=== PATIENT | male | born 1990 | race Caucasian/White ===

== ENCOUNTER 2017-05-27 12:54 | Inpatient (IN) | payer MEDICAID, OTHER ==
[~2017-05-27] VITALS: Ht 185.4 cm; Wt 100.4 kg
[2017-05-27] MEDS ORDERED: INSLAN SQ (12:58)
[2017-05-27] MEDS ORDERED: INSNOV SQ (12:58)
[2017-05-27 13:41] LABS: BASOPHILS % (AUTO) 0.8 % (0.0-2.0); EOSINOPHILS % (AUTO) 1.1 % (1.0-6.0); HEMATOCRIT 42.7 % (41-53); HEMOGLOBIN 15.2 g/dL (13.5-17.5); LYMPHOCYTES # (AUTO) 1.8 K/uL (1.0-4.8); LYMPHOCYTES % (AUTO) 31.4 % (22.0-44.0); MEAN CORPUSCULAR HGB CONC 35.5 G/dL (31.0-37.0); MEAN CORPUSCULAR VOLUME 96 fL (80-100); MONOCYTES # (AUTO) 0.7 K/uL (0.1-1.0); MONOCYTES % (AUTO) 12.3 % (2.0-9.0); NEUTROPHILS # (AUTO) 3.1 K/uL (1.8-7.7); NEUTROPHILS % (AUTO) 54.4 % (40.0-70.0); PLATELET COUNT (AUTO) 404 K/uL (150-450); RED BLOOD CELL COUNT(AUTO) 4.47 MIL/uL (4.50-5.90); RED CELL DISTRIBUTION WIDTH 13.1 % (11.5-14.5); WHITE BLOOD COUNT (AUTO) 5.6 K/uL (4.5-11.0)
[2017-05-27 13:54] LABS: ANION GAP 10 mmol/L (8-16); CALCIUM, TOTAL 8.6 mg/dL (8.8-10.5); CARBON DIOXIDE 27 mmol/L (22-29); CHLORIDE 103 mmol/L (98-107); CREATININE 0.74 mg/dL (0.60-1.30); GLOMERULAR FILTR. RATE CALC > 60 mL/min (>60); POTASSIUM 3.4 mmol/L (3.5-5.1); SODIUM SERUM 140 mmol/L (136-145); UREA NITROGEN, BLOOD 8 mg/dL (7-18)
[2017-05-27 14:00] LABS: ALANINE AMINOTRANSFERASE 62 U/L (12-78); ALBUMIN 3.9 g/dL (3.4-5.0); ASPARTATE AMINOTRANSFERASE 58 U/L (15-37); BILIRUBIN,TOTAL 0.4 mg/dL (0.1-1.0); TOTAL PROTEIN, SERUM 7.9 g/dL (6.4-8.2)
[2017-05-27] MEDS ORDERED: HALOPERIDOL 5 MG TABLET PO PRN (14:15)
[2017-05-27] MEDS ORDERED: ZOLPIDEM TARTRATE 10 MG TABLET PO PRN (14:15)
[2017-05-27] MEDS ORDERED: LORazepam 2 MG TABLET PO PRN (14:15)
[2017-05-27] MEDS ORDERED: POTASSIUM CHLORIDE 20 MEQ ER TABLET PO ONE (14:30)
[2017-05-27] MEDS ORDERED: LORazepam 2 MG/ML VIAL IM ONE (14:45)
[2017-05-27] MEDS ORDERED: DiphenhydrAMINE HCL 50 MG/ML VIAL IM ONE (14:45)
[2017-05-27] MEDS ORDERED: HALOPERIDOL LACTATE 5 MG/ML VIAL IM ONE (14:45)
[2017-05-27 15:02] LABS: GLUCOSE,POINT OF CARE 119 MG/DL (70-110)
[2017-05-28] VITALS (11 sets, daily range): BP systolic 118–140; BP diastolic 75–93
[2017-05-28 00:57] LABS: GLUCOSE,POINT OF CARE 73 MG/DL (70-110)
[2017-05-28 14:37] LABS: GLUCOSE COMMENT 1 Doctor Notified; GLUCOSE,POINT OF CARE 232 MG/DL (70-110)
[2017-05-28] MEDS ORDERED: GLUCAGON,HUMAN RECOMBINANT 1 MG VIAL IM PRN (15:15)
[2017-05-28 16:22] LABS: GLUCOSE,POINT OF CARE 273 MG/DL (70-110)
[2017-05-28] MEDS: INSULIN ASPART 100 UNITS/ML SQ PRN ×2 (17:02→21:15)
[2017-05-28] MEDS ORDERED: ACETAMINOPHEN 325 MG TABLET PO PRN (18:45)
[2017-05-28] MEDS ORDERED: IBUPROFEN 400 MG TABLET PO PRN (18:45)
[2017-05-28 20:33] LABS: GLUCOSE,POINT OF CARE 274 MG/DL (70-110)
[2017-05-28 20:33] LABS: GLUCOSE,POINT OF CARE 298 MG/DL (70-110)
[2017-05-29 06:53] VITALS: BP 131/71
[2017-05-29 06:54] VITALS: BP 131/71
[2017-05-29 08:30] VITALS: BP 118/78
[2017-05-29 08:31] VITALS: BP 118/78
[2017-05-29 08:38] LABS: GLUCOSE,POINT OF CARE 266 MG/DL (70-110)
[2017-05-29] MEDS ORDERED: INSULIN DETEMIR 100 UNITS/ML SQ SCH (09:00)
[2017-05-29 09:17] LABS: CHOL/HDL RATIO 3.1 (4.2-7.3); THYROID STIMULATING HORMONE 1.54 uIU/mL (0.36-3.74)
[2017-05-29] MEDS: INSULIN ASPART 100 UNITS/ML SQ PRN (11:09)
[2017-05-29 11:12] LABS: GLUCOSE COMMENT 1 Received Meds; GLUCOSE,POINT OF CARE 278 MG/DL (70-110)
== END 2017-05-29 16:00 | disposition home or self-care (01) | DRG 750 ==
LOC: EMS 12:56 → B3A 18:41 → B2S 05-28 09:22
PROVIDERS: ADMIT Psychiatry & Neurology Psychiatry; ATTEND Psychiatry & Neurology Psychiatry
DX: F25.9 Schizoaffective disorder, unspecified (principal); E11.9 Type 2 diabetes mellitus without complications; R45.851 Suicidal ideations; F19.10 Other psychoactive substance abuse, uncomplicated; E87.6 Hypokalemia; R74.0 Nonspecific elevation of levels of transaminase and lactic acid dehydrogenase [LDH]; Z79.899 Other long term (current) drug therapy; Z79.4 Long term (current) use of insulin; Z71.51 Drug abuse counseling and surveillance of drug abuser; Z72.89 Other problems related to lifestyle
CPT/HCPCS: 82962; 84443; 87081; 96372; 99285; G0480; J1200; J1630; J2060

== ENCOUNTER 2019-05-23 00:45 | Inpatient (IN) | payer MEDICAID, OTHER ==
[~2019-05-23] VITALS: Ht 185.4 cm; Wt 111.4 kg
[2019-05-23] MEDS ORDERED: INSU100V36 SQ (01:19)
[2019-05-23] MEDS ORDERED: SITA25 PO (01:19)
[2019-05-23] MEDS ORDERED: CITA-106 PO (01:19)
[2019-05-23 02:04] LABS: BASOPHILS % (AUTO) 0.8 % (0.0-2.0); EOSINOPHILS % (AUTO) 1.2 % (1.0-6.0); HEMATOCRIT 42.6 % (41-53); HEMOGLOBIN 15.1 g/dL (13.5-17.5); LYMPHOCYTES # (AUTO) 2.7 K/uL (1.0-4.8); LYMPHOCYTES % (AUTO) 34.9 % (22.0-44.0); MEAN CORPUSCULAR HEMOGLOBIN 31.8 pg (26.0-34.0); MEAN CORPUSCULAR HGB CONC 35.4 G/dL (31.0-37.0); MEAN CORPUSCULAR VOLUME 90 fL (80-100); MONOCYTES # (AUTO) 0.8 K/uL (0.1-1.0); MONOCYTES % (AUTO) 10.4 % (2.0-9.0); NEUTROPHILS # (AUTO) 4.1 K/uL (1.8-7.7); NEUTROPHILS % (AUTO) 52.7 % (40.0-70.0); PLATELET COUNT (AUTO) 269 K/uL (150-450); RED BLOOD CELL COUNT(AUTO) 4.76 MIL/uL (4.50-5.90); RED CELL DISTRIBUTION WIDTH 12.3 % (11.5-14.5)
[2019-05-23 02:09] LABS: ANION GAP 12 mmol/L (8-16); CALCIUM, TOTAL 9.3 mg/dL (8.8-10.5); CARBON DIOXIDE 26 mmol/L (22-29); CHLORIDE 99 mmol/L (98-107); CREATININE 0.89 mg/dL (0.60-1.30); GLOMERULAR FILTR. RATE CALC > 60 mL/min (>60); GLUCOSE,RANDOM 118 mg/dL (70-110); POTASSIUM 3.1 mmol/L (3.5-5.1); SODIUM SERUM 137 mmol/L (136-145); UREA NITROGEN, BLOOD 10 mg/dL (7-18)
[2019-05-23 02:15] LABS: ALANINE AMINOTRANSFERASE 25 U/L (12-78); ALBUMIN 4.1 g/dL (3.4-5.0); ALKALINE PHOSPHATASE 107 U/L (46-116); ASPARTATE AMINOTRANSFERASE 30 U/L (15-37); BILIRUBIN,TOTAL 0.5 mg/dL (0.1-1.0); TOTAL PROTEIN, SERUM 7.8 g/dL (6.4-8.2)
[2019-05-23 02:35] LABS: GLUCOSE,POINT OF CARE 83 MG/DL (70-110)
[2019-05-23] MEDS ORDERED: DEXTROSE 50%-WATER 25 GM/50 ML SYRINGE IVP ONE ×2 (03:30→03:31)
[2019-05-23 03:42] LABS: GLUCOSE,POINT OF CARE 46 MG/DL (70-110)
[2019-05-23] MEDS ORDERED: DEXTROSE 5%-0.9% SODIUM CHL 1,000 ML IV ONE (03:45)
[2019-05-23 04:04] LABS: GLUCOSE,POINT OF CARE 241 MG/DL (70-110)
[2019-05-23] MEDS ORDERED: ONDANSETRON HCL 4 MG/2 ML VIAL IVP PRN ×3 (05:15→12:30)
[2019-05-23] MEDS ORDERED: ACETAMINOPHEN 325 MG TABLET PO PRN ×3 (05:15→12:30)
[2019-05-23 05:29] LABS: GLUCOSE,POINT OF CARE 289 MG/DL (70-110)
[2019-05-23] MEDS ORDERED: POTASSIUM CHLORIDE 20 MEQ ER TABLET PO ONE (06:00)
[2019-05-23 06:40] LABS: GLUCOSE,POINT OF CARE 277 MG/DL (70-110)
[2019-05-23] MEDS ORDERED: DEXTROSE 50%-WATER 25 GM/50 ML SYRINGE IVP PRN ×2 (08:15→12:30)
[2019-05-23 08:18] LABS: GLUCOSE,POINT OF CARE 317 MG/DL (70-110)
[2019-05-23 08:32] VITALS: BP 109/78
[2019-05-23] MEDS: INSULIN LISPRO 100 UNITS/ML SQ PRN ×4 (09:01→20:40)
[2019-05-23] MEDS ORDERED: PNEUMOCOCCAL VACCINE POLYVALENT 0.5 ML VIAL [PPSV23] IM ONE (10:00)
[2019-05-23 11:54] LABS: GLUCOSE,POINT OF CARE 349 MG/DL (70-110)
[2019-05-23] MEDS ORDERED: ALBUTEROL SULFATE 2.5 MG/0.5 ML NEB SOLUTION NEB PRN ×2 (12:30)
[2019-05-23] MEDS ORDERED: HYDROCODONE/ACETAMINOPHEN 5-325 MG TABLET PO PRN ×2 (12:30)
[2019-05-23] MEDS ORDERED: IPRATROPIUM BROMIDE 0.5 MG/2.5 ML NEB SOLUTION NEB PRN ×2 (12:30)
[2019-05-23] MEDS ORDERED: ZOLPIDEM TARTRATE 5 MG TABLET PO PRN ×2 (12:30)
[2019-05-23] MEDS ORDERED: MAGNESIUM HYDROXIDE SUSPENSION 30 ML UDCUP PO PRN ×2 (12:30)
[2019-05-23] MEDS ORDERED: MORPHINE SULFATE 2 MG/ML SYRINGE IVP PRN ×2 (12:30)
[2019-05-23] MEDS ORDERED: BISACODYL 10 MG RECTAL RECTAL SUPPOSITORY PR PRN ×2 (12:30)
[2019-05-23 13:31] VITALS: BP 111/78
[2019-05-23 15:55] VITALS: BP 121/74
[2019-05-23] MEDS ORDERED: HEPARIN SODIUM,PORCINE 5,000 UNITS/ML VIAL SQ SCH (16:00)
[2019-05-23] MEDS: HEPARIN SODIUM,PORCINE 5,000 UNITS/ML VIAL SQ SCH ×2 (16:45→23:53)
[2019-05-23 17:16] LABS: GLUCOMETER DEV NAME(LOC) 4E.2; GLUCOSE,POINT OF CARE 376 MG/DL (70-110)
[2019-05-23 19:33] VITALS: BP 125/82
[2019-05-23] MEDS: DOCUSATE SODIUM 100 MG CAPSULE PO SCH (20:37)
[2019-05-23] MEDS ORDERED: DOCUSATE SODIUM 100 MG CAPSULE PO SCH (21:00)
[2019-05-23] MEDS ORDERED: INSULIN GLARGINE,HUM.REC.ANLOG 100 UNITS/ML SQ SCH (21:00)
[2019-05-23 23:09] LABS: GLUCOMETER DEV NAME(LOC) 4E.2; GLUCOSE,POINT OF CARE 344 MG/DL (70-110)
[2019-05-23 23:48] VITALS: BP 128/74
[2019-05-24 04:10] VITALS: BP 123/85
[2019-05-24] MEDS: INSULIN LISPRO 100 UNITS/ML SQ PRN ×4 (05:32→20:59)
[2019-05-24] MEDS ORDERED: INSULIN LISPRO 100 UNITS/ML SQ ONE ×2 (06:00→17:45)
[2019-05-24 06:30] LABS: GLUCOMETER DEV NAME(LOC) 4E.2; GLUCOSE,POINT OF CARE 422 MG/DL (70-110)
[2019-05-24 06:30] LABS: GLUCOMETER DEV NAME(LOC) 4E.2; GLUCOSE,POINT OF CARE 356 MG/DL (70-110)
[2019-05-24 07:43] VITALS: BP 115/63
[2019-05-24] MEDS: HEPARIN SODIUM,PORCINE 5,000 UNITS/ML VIAL SQ SCH ×2 (08:49→16:00)
[2019-05-24] MEDS: CITALOPRAM HYDROBROMIDE 20 MG TABLET PO SCH (08:49)
[2019-05-24] MEDS: DOCUSATE SODIUM 100 MG CAPSULE PO SCH ×2 (08:53→20:56)
[2019-05-24] MEDS: SitaGLIPtin PHOSPHATE 25 MG TABLET PO SCH (08:53)
[2019-05-24 11:14] VITALS: BP 125/73
[2019-05-24 15:30] VITALS: BP 121/76
[2019-05-24 19:56] VITALS: BP 125/78
[2019-05-24] MEDS: INSULIN GLARGINE,HUM.REC.ANLOG 100 UNITS/ML SQ SCH (20:57)
[2019-05-24 21:13] LABS: GLUCOMETER DEV NAME(LOC) 4E.2; GLUCOSE,POINT OF CARE 320 MG/DL (70-110)
[2019-05-24 21:13] LABS: GLUCOMETER DEV NAME(LOC) 4E.2; GLUCOSE,POINT OF CARE 381 MG/DL (70-110)
[2019-05-24 21:14] LABS: GLUCOMETER DEV NAME(LOC) 4E.2; GLUCOSE,POINT OF CARE 438 MG/DL (70-110)
[2019-05-25] VITALS (7 sets, daily range): BP systolic 101–135; BP diastolic 55–84
[2019-05-25] MEDS: HEPARIN SODIUM,PORCINE 5,000 UNITS/ML VIAL SQ SCH ×4 (00:09→23:35)
[2019-05-25 05:53] LABS: HEMOGLOBIN A1C 8.9 % (4.5-6.2)
[2019-05-25 05:58] LABS: ANION GAP 10 mmol/L (8-16); CALCIUM, TOTAL 8.5 mg/dL (8.8-10.5); CARBON DIOXIDE 27 mmol/L (22-29); CHLORIDE 97 mmol/L (98-107); CREATININE 0.88 mg/dL (0.60-1.30); GLOMERULAR FILTR. RATE CALC > 60 mL/min (>60); GLUCOSE,RANDOM 340 mg/dL (70-110); POTASSIUM 3.9 mmol/L (3.5-5.1); SODIUM SERUM 134 mmol/L (136-145); UREA NITROGEN, BLOOD 11 mg/dL (7-18)
[2019-05-25] MEDS: INSULIN LISPRO 100 UNITS/ML SQ PRN ×4 (06:17→19:46)
[2019-05-25 06:48] LABS: GLUCOMETER DEV NAME(LOC) 4E.2; GLUCOSE,POINT OF CARE 382 MG/DL (70-110)
[2019-05-25] MEDS: SitaGLIPtin PHOSPHATE 25 MG TABLET PO SCH (08:49)
[2019-05-25] MEDS: CITALOPRAM HYDROBROMIDE 20 MG TABLET PO SCH (08:49)
[2019-05-25] MEDS: INSULIN GLARGINE,HUM.REC.ANLOG 100 UNITS/ML SQ SCH (08:50)
[2019-05-25] MEDS: DOCUSATE SODIUM 100 MG CAPSULE PO SCH ×2 (08:55→19:48)
[2019-05-25 11:49] LABS: GLUCOMETER DEV NAME(LOC) 4E.2; GLUCOSE,POINT OF CARE 280 MG/DL (70-110)
[2019-05-25 17:48] LABS: GLUCOMETER DEV NAME(LOC) 4E.2; GLUCOSE,POINT OF CARE 330 MG/DL (70-110)
[2019-05-25 20:11] LABS: GLUCOMETER DEV NAME(LOC) 4E.2; GLUCOSE,POINT OF CARE 321 MG/DL (70-110)
[2019-05-25] MEDS ORDERED: INSULIN GLARGINE,HUM.REC.ANLOG 100 UNITS/ML SQ SCH (21:00)
[2019-05-26 05:08] VITALS: BP 113/75
[2019-05-26] MEDS: INSULIN LISPRO 100 UNITS/ML SQ PRN ×2 (05:52→11:55)
[2019-05-26 07:30] VITALS: BP 126/71
[2019-05-26] MEDS: DOCUSATE SODIUM 100 MG CAPSULE PO SCH (08:03)
[2019-05-26] MEDS: CITALOPRAM HYDROBROMIDE 20 MG TABLET PO SCH (08:03)
[2019-05-26] MEDS: HEPARIN SODIUM,PORCINE 5,000 UNITS/ML VIAL SQ SCH (08:03)
[2019-05-26] MEDS: SitaGLIPtin PHOSPHATE 25 MG TABLET PO SCH (08:03)
[2019-05-26] MEDS ORDERED: INSULIN GLARGINE,HUM.REC.ANLOG 100 UNITS/ML SQ SCH (09:00)
[2019-05-26 12:10] VITALS: BP 121/65
[2019-05-26 13:32] LABS: GLUCOMETER DEV NAME(LOC) 4E.2; GLUCOSE,POINT OF CARE 306 MG/DL (70-110)
[2019-05-26 13:48] LABS: GLUCOMETER DEV NAME(LOC) 4E.2; GLUCOSE,POINT OF CARE 259 MG/DL (70-110)
== END 2019-05-26 15:39 | disposition home or self-care (01) | DRG 812 ==
LOC: EMS 00:45 → ICU 05:20 → 4E 14:02
PROVIDERS: ADMIT Hospitalist; ATTEND Hospitalist
DX: T38.3X2A Poisoning by insulin and oral hypoglycemic [antidiabetic] drugs, intentional self-harm, initial encounter (principal); F33.2 Major depressive disorder, recurrent severe without psychotic features; E10.649 Type 1 diabetes mellitus with hypoglycemia without coma; E87.6 Hypokalemia; Z79.4 Long term (current) use of insulin; Z91.19 Patient's noncompliance with other medical treatment and regimen; Y92.89 Other specified places as the place of occurrence of the external cause; Z79.899 Other long term (current) drug therapy
CPT/HCPCS: 82948; 83036; 87081; 99291; G0378; G0480; J1644; J1815; J7042